=== PATIENT | female | born 1955 | race Caucasian/White ===

== ENCOUNTER 2020-06-29 10:09 | Emergency (ER) | payer SELFPAY ==
[~2020-06-29] VITALS: Ht 152.4 cm; Wt 49.9 kg
[2020-06-29 10:14] VITALS: Ht 152.4 cm; Wt 49.9 kg
[2020-06-29 12:20] VITALS: BP 134/75
== END 2020-06-29 12:20 | disposition home or self-care (01) ==
LOC: ED 10:09
DX: L25.9 Unspecified contact dermatitis, unspecified cause (principal); H66.92 Otitis media, unspecified, left ear
CPT/HCPCS: J7512